=== PATIENT | female | born 1990 | race Caucasian/White ===

== ENCOUNTER 2023-07-07 16:55 | Emergency (ER) | payer MEDICAID ==
[~2023-07-07] VITALS: Ht 157.5 cm; Wt 41.0 kg
[2023-07-07 16:57] VITALS: TEMP 98.5; O2SAT 100
[2023-07-07 17:25] VITALS: BP 112/70; PULSE 77; RESP 18
[2023-07-07 18:15] LABS: BASOPHILS % 0.3 % (0.0-2.0); EOSINOPHILS % 0.2 % (0.0-5.0); HEMATOCRIT. 34.1 % (36.0-48.0); HEMOGLOBIN. 11.4 g/dL (12.0-16.0); LYMPHOCYTES % 12.2 % (20.0-50.0); MEAN CORPUSCULAR HEMOGLOBIN 30.4 pg (28.0-32.0); MEAN CORPUSCULAR HGB CONC 33.4 g/dL (31.0-37.0); MEAN CORPUSCULAR VOLUME 90.9 fL (81.0-99.0); MEAN PLATELET VOLUME 7.1 fl (7.4-10.4); MONOCYTES % 5.3 % (2.0-8.0); PLATELET 375 x1000/uL (130-400); RED BLOOD CELL COUNT 3.75 mill/uL (4.2-5.4); RED CELL DISTRIBUTION WIDTH 13.7 % (11.6-14.6); WHITE BLOOD COUNT 11.3 x1000/uL (4.5-11.0)
[2023-07-07 18:26] LABS: HCG SCREEN NEGATIVE
[2023-07-07] MEDS: SODIUM CHLORIDE 0.9% 1,000 ML IV ONE (18:26)
[2023-07-07] MEDS: LEVETIRACETAM 1000MG PREMIX 100 ML IV ONE (18:26)
[2023-07-07 18:32] LABS: ALANINE AMINOTRANSFERASE < 7 IU/L (10-49); ALBUMIN 4.6 g/dL (3.2-4.8); ASPARTATE AMINOTRANSFERASE 13 IU/L (<34); BILIRUBIN TOTAL 0.4 mg/dL (0.1-1.0); CALCIUM 8.8 mg/dL (8.7-10.4); CARBON DIOXIDE 22 mEq/L (21-32); CHLORIDE 105 mEq/L (98-107); CREATININE 0.4 mg/dL (0.6-1.0); ETHANOL BLOOD < 10 mg/dL (<10); GLUCOSE 95 mg/dL (70-105); POTASSIUM 3.3 mEq/L (3.5-5.1); PROTEIN TOTAL 7.5 g/dL (6.0-8.3); SODIUM 139 mEq/L (136-145); UREA NITROGEN BLOOD 14 mg/dL (9-23)
[2023-07-07] MEDS ORDERED: POTASSIUM CHLORIDE 20MEQ TABLET SR PO ONE (18:45)
[2023-07-07] MEDS ORDERED: LACO200T2 MT (20:56)
[2023-07-07] MEDS ORDERED: KEPP500 MT (20:56)
[2023-07-07] MEDS ORDERED: CARB200T MT (20:56)
== END 2023-07-07 22:30 | disposition home or self-care (01) ==
LOC: ER 16:55
DX: R56.9 Unspecified convulsions (principal)
CPT/HCPCS: 80053; 80320; 84703; 85025; 36415; 96365; 99284; J1953; J7030; G0480

== ENCOUNTER 2023-07-08 03:51 | Emergency (ER) | payer MEDICAID, OTHER ==
[~2023-07-08] VITALS: Ht 157.5 cm; Wt 41.0 kg
[~2023-07-08 03:51] MED LIST: CARB200T MT; KEPP500 MT
[2023-07-08 03:58] VITALS: O2SAT 100
[2023-07-08 04:05] VITALS: TEMP 98.2
[2023-07-08] MEDS: ONDANSETRON HCL 4MG/2ML INJ IV STA (04:27)
[2023-07-08] MEDS: LEVETIRACETAM 500MG PREMIX 100 ML IV ONE (04:29)
[2023-07-08 04:31] LABS: BASOPHILS % 0.8 % (0.0-2.0); EOSINOPHILS % 0.5 % (0.0-5.0); HEMATOCRIT. 30.2 % (36.0-48.0); HEMOGLOBIN. 10.1 g/dL (12.0-16.0); LYMPHOCYTES % 19.1 % (20.0-50.0); MEAN CORPUSCULAR HEMOGLOBIN 30.7 pg (28.0-32.0); MEAN CORPUSCULAR HGB CONC 33.5 g/dL (31.0-37.0); MEAN CORPUSCULAR VOLUME 91.6 fL (81.0-99.0); MEAN PLATELET VOLUME 7.2 fl (7.4-10.4); MONOCYTES % 5.2 % (2.0-8.0); NEUTROPHILS % 74.4 % (40.0-76.0); PLATELET 352 x1000/uL (130-400); RED CELL DISTRIBUTION WIDTH 13.2 % (11.6-14.6); WHITE BLOOD COUNT 9.8 x1000/uL (4.5-11.0)
[2023-07-08 04:46] LABS: ALANINE AMINOTRANSFERASE 7 IU/L (10-49); ALBUMIN 4.2 g/dL (3.2-4.8); ASPARTATE AMINOTRANSFERASE 19 IU/L (<34); BILIRUBIN TOTAL 0.4 mg/dL (0.1-1.0); CALCIUM 8.2 mg/dL (8.7-10.4); CARBON DIOXIDE 21 mEq/L (21-32); CHLORIDE 109 mEq/L (98-107); CREATININE 0.4 mg/dL (0.6-1.0); GLUCOSE 94 mg/dL (70-105); POTASSIUM 3.8 mEq/L (3.5-5.1); PROTEIN TOTAL 6.8 g/dL (6.0-8.3); SODIUM 140 mEq/L (136-145); UREA NITROGEN BLOOD 11 mg/dL (9-23)
[2023-07-08 04:49] LABS: ETHANOL BLOOD < 10 mg/dL (<10)
[2023-07-08] MEDS: SODIUM CHLORIDE 0.9% 1,000 ML IV ONE (05:01)
[2023-07-08 05:12] LABS: HCG SCREEN NEGATIVE
[2023-07-08 05:59] LABS: CLARITY URINE CLEAR (CLEAR); COLOR URINE YELLOW (YELLOW); GLUCOSE URINE NEGATIVE (NEGATIVE); KETONES URINE 3+ (NEGATIVE); LEUKOCYTE ESTERASE URINE NEGATIVE (NEGATIVE); NITRITE URINE NEGATIVE (NEGATIVE); OCCULT BLOOD URINE TRACE (NEGATIVE); PROTEIN URINE 1+ (NEGATIVE); SPECIFIC GRAVITY URINE 1.032 (1.005-1.030)
[2023-07-08 06:10] LABS: *AMPHETAMINES SCREEN URINE NEGATIVE (NEGATIVE); *BARBITURATES SCREEN URINE NEGATIVE (NEGATIVE); *BENZODIAZEPINES SCREEN URINE PRESUMPTIVE POSITIVE (NEGATIVE); *COCAINE SCREEN URINE NEGATIVE (NEGATIVE); BACTERIA URINE TRACE; CANNABINOID URINE SCREEN NEGATIVE (NEGATIVE); ECSTASY MDMA SCREEN URINE NEGATIVE (NEGATIVE); METHADONE URINE SCREEN Neg (NEGATIVE); OPIATES URINE SCREEN NEGATIVE (NEGATIVE); PHENCYCLIDINE URINE SCREEN NEGATIVE (NEGATIVE); RBC URINE 0-2 /hpf (0-2); SQUAMOUS EPITHELIAL CELL URINE FEW /lpf (RARE/1+); WBC URINE NONE SEEN /hpf (0-2)
[2023-07-08 08:55] VITALS: BP 119/70; PULSE 96; RESP 18
== END 2023-07-08 12:01 | disposition left against medical advice (07) ==
LOC: ER 03:51
DX: G93.40 Encephalopathy, unspecified (principal); Z88.8 Allergy status to other drugs, medicaments and biological substances
CPT/HCPCS: 80053; 80305; 81003; 80320; 82962; 84703; 83605; 85025; 36415; 71045; 70450; 96365; 96366; 96375; 99291; J1953; J2405; J7030; Z7610 ×3; G0480